=== PATIENT | female | born 1985 | race Caucasian/White ===

== ENCOUNTER 2020-04-13 12:16 | Emergency (ER) | payer OTHER ==
[~2020-04-13] VITALS: Ht 160 cm; Wt 86.2 kg
[2020-04-13] MEDS ORDERED: HALOPERIDOL5 MG PO (12:28)
[2020-04-13] MEDS ORDERED: HYDROXYZINE HCL25 MG PO (12:28)
--- NOTE | 2020-04-13 21:26 | EKG ---
[facility] [address] [facility] [place] [address] Signed Sinus rhythm with premature atrial complexes Prolonged QT Abnormal ECG No previous ECGs available Confirmed by TOMI WOODARD MD ([id number] on 04/13/2020 9:26:15 PM Electronically Signed By: TOMI WOODARD MD 04/13/202125 PATIENT NAME: ASHLEE NICHOLAS Electrocardiogram DATE OF : 87 PHYSICIAN: TOMI WOODARD MD REPORT #: [id number] REPORT IS CONFIDENTIAL AND NOT TO BE RELEASED WITHOUT AUTHORIZATION
== END 2020-04-14 18:43 | disposition home or self-care (01) ==
LOC: ED 12:16
DX: T43.592A Poisoning by other antipsychotics and neuroleptics, intentional self-harm, initial encounter (principal); F31.9 Bipolar disorder, unspecified; Z20.822 Contact with and (suspected) exposure to COVID-19
CPT/HCPCS: 80053; 80176; 81001; 84439; 84443; 84703; 85025; 93005; 93010; 99285-25; C9803; U0003

== ENCOUNTER 2021-06-06 23:18 | Emergency (ER) | payer OTHER ==
[~2021-06-06] VITALS: Ht 160 cm; Wt 84.3 kg
[~2021-06-06 23:18] MED LIST: HALOPERIDOL5 MG PO; HYDROXYZINE HCL25 MG PO
[2021-06-06] MEDS ORDERED: LORAZEPAM0.5 MG PO (23:32)
--- NOTE | 2021-06-09 09:35 | EKG ---
[facility] [address] [facility] [place] [address] Signed Normal sinus rhythm Normal ECG When compared with ECG of 13-APR-2020 12:22, premature atrial complexes are no longer present Confirmed by JUNE MAYER MD ([id number] on 06/09/2021 9:35:09 AM Electronically Signed By: JUNE MAYER MD 06/09/21 0935 PATIENT NAME: ASHLEE NICHOLAS Electrocardiogram DATE OF : 87 PHYSICIAN: JUNE MAYER MD REPORT #: [id number] REPORT IS CONFIDENTIAL AND NOT TO BE RELEASED WITHOUT AUTHORIZATION
== END 2021-06-07 17:55 ==
LOC: ED 23:18
DX: R45.851 Suicidal ideations (principal); F29 Unspecified psychosis not due to a substance or known physiological condition; Z79.899 Other long term (current) drug therapy; Z20.822 Contact with and (suspected) exposure to COVID-19
CPT/HCPCS: 36415; 80053; 81001; 84443; 84703; 85025; 93005; 93010; 99285-25; C9803; G0480; U0003